=== PATIENT | female | born 1985 | race Caucasian/White ===

== ENCOUNTER 2016-07-24 02:56 | Emergency (ER) | payer OTHER, SELFPAY ==
--- NOTE | 2016-07-24 03:17 | ERPHSYRPT ---
- History of Present Illness Time Seen by Provider: 07/24/16 03:02 Source: patient Exam Limitations: no limitations Patient Subjective Stated Complaint: states that she recently has had an increased feeling of depression as a result of the of her mother - states that she was in a fight with her girlfriend this morning et took more of her xanax (2mg) and some additional Neurontin pills - states that she has a history of suicide attempts, "every year except for the last 2 of 15 years" - states that she was not trying to commit suicide tonight, but just that she wanted to feel numb - states that her ex- found her asleep in her home and he called the ambulance - pt states that she does not want to be hear and repeats that she is neither suicidal or homicidal tonight Triage Nursing Assessment: assisted to cart per EMS personnel - moves all extremities with equal strength. alert/oriented x 3 - sedated affect. skin pwd - with disheavaled appearance - no rash/injury appreciated. resps easy - non-labored Physician History: ABOUT 1 HOUR AGO PT'S DAUGHTER'S FATHER SAID PT WAS UNRESPONSIVE, CALLED POLICE AND EMS BROUGHT PT TO [facility] ER FOR EVALUATION. PT STATES SHE HAD AN ARGUEMENT WITH AN X-GIRLFRIEND YESTERDAY AND TONIGHT TOOK AN EXTRA 1 MG XANAX. PT DENIES SUICIDAL AND HOMICIDAL IDEATION TONIGHT. PT DENIES SHORTNESS OF AIR, FEVER, HEADACHE, ABDOMINAL PAIN, VOMITING; ADMITS TO CHEST PAIN ONLY WHEN ANXIOUS( ONGOING). PT STATES THAT EXCEPT FOR 2016 SHE HAS TRIED TO COMMIT SUICIDE BY OVERDOSE FOR THE PAST [address] IS A [facility] PT. Allergies/Adverse Reactions: eggs Allergy (Uncoded 07/24/16 03:01) Home Medications: Gabapentin 400 mg PO TID 12/19/14 [History] Venlafaxine HCl [Effexor] 75 mg PO DAILY 12/19/14 [History] Atorvastatin Calcium [Lipitor] 10 mg PO HS 03/12/15 [History] Cyclobenzaprine HCl 10 mg [Cyclobenzaprine 10 MG] 10 mg PO BID PRN [History] Modafinil [Provigil] 200 mg PO DAILY 03/12/15 [History] Olanzapine [Zyprexa] 15 mg PO DAILY 09/12/16 [History] Alprazolam 1 mg [Xanax 1 mg] 1 mg PO QIDPRN PRN 07/24/16 [History] Lansoprazole [Prevacid] 30 mg PO DAILY 07/24/16 [History] Hx Tetanus, Diphtheria Vaccination/Date Given: Yes Hx Influenza Vaccination/Date Given: No Hx Pneumococcal Vaccination/Date Given: No Immunizations Up to Date: Yes - Review of Systems Constitutional: No Fever Ears, Nose, & Throat: No Ear Pain, No Throat Pain Respiratory: No Dyspnea Cardiac: Chest Pain (ONLY WHEN ANXIOUS) Abdominal/Gastrointestinal: No Abdominal Pain, No Vomiting Psychological: Anxiety, Depression, Suicidal Ideations (HISTORY OF SUICIDAL IDEATIONS FOR THE PAST 15 YEARS.) Endocrine: No Excessive Sweating All Other Systems: Reviewed and Negative - Past Medical History Pertinent Past Medical History: Yes Neurological History: No Pertinent History ENT History: No Pertinent History Cardiac History: High Cholesterol Respiratory History: Asthma, Sleep Apnea Endocrine Medical History: No Pertinent History Musculoskeletal History: No Pertinent History GI Medical History: Gallbladder Disease History: No Pertinent History Psycho-Social History: Anxiety, Bipolar Female Reproductive Disorders: Other Other Medical History: dysphonia - Past Surgical History Past Surgical History: Yes Neuro Surgical History: No Pertinent History Cardiac: No Pertinent History Respiratory: No Pertinent History Gastrointestinal: Cholecystectomy Genitourinary: No Pertinent History Musculoskeletal: Orthopedic Surgery Female Surgical History: Section, Tubal Ligation Other Surgical History: back surgery - Social History Smoking Status: Current every day smoker How long have you smoked: 16 Exposure to second hand smoke: No Drug Use: none Patient Lives Alone: No - Female History Hx Now: No - Nursing Vital Signs Nursing Vital Signs: Initial Vital Signs Temperature 98.5 F Pulse Rate 88 Respiratory Rate 16 Blood Pressure [Right Arm] 114/76 Pain Intensity 0 - Physical Exam General Appearance: alert Eye Exam: PERRL/EOMI Ears, Nose, Throat Exam: dry mucous membranes Neck Exam: normal inspection Respiratory Exam: lungs clear Cardiovascular Exam: normal heart sounds Gastrointestinal/Abdomen Exam: soft, normal bowel sounds Back Exam: normal range of motion Extremity Exam: normal inspection, No pedal edema Neurologic Exam: alert, cooperative, depressed mood/affect Skin Exam: warm, dry SpO2: 92 Oxygen Delivery: Room Air - Course Nursing assessment & vital signs reviewed: Yes Ordered Tests: Active Orders 24 hr Category Date Time Status ACETAMINOPHEN Stat Lab 07/24/16 03:34 Completed CBC W DIFF Stat Lab 07/24/16 03:34 Completed CMP Stat Lab 07/24/16 03:34 Completed CULTURE,URINE Stat Lab 07/24/16 04:26 Ordered Ethyl Alcohol,Urine Stat Lab 07/24/16 03:34 Completed HCG QUALITATIVE,SERUM Stat Lab 07/24/16 03:34 Completed SALICYLATE Stat Lab 07/24/16 03:34 Completed UA W/ MICROSCOPIC Stat Lab 07/24/16 03:34 Completed Urine Triage Profile Stat Lab 07/24/16 03:34 Completed Medication Summary Discontinued Medications Generic Name Dose Route Start Last Admin Trade Name Freq PRN Reason Stop Dose Admin Ceftriaxone Sodium 1,000 mg 07/24/16 04:27 Rocephin 1000 Mg Inj IM 07/24/16 04:28 STAT ONE Promethazine HCl 25 mg 07/24/16 04:27 Phenergan 25 Mg Inj IM 07/24/16 04:28 STAT ONE Lab/Rad Data: Laboratory Result Diagrams 07/24/16 03:34 07/24/16 03:34 Laboratory Results 07/24/16 07/24/16 07/24/16 Range/Units 03:34 03:34 03:34 WBC (4.0-10.5) K/mm3 RBC (4.1-5.4) M/mm3 Hgb (12.0-16.0) gm/dl Hct (35-47) % MCV (78-100) fl MCH (26-32) pg MCHC (32-36) g/dl RDW (11.5-14.0) % Plt Count (150-450) K/mm3 MPV (6-9.5) fl Gran % (36.0-66.0) % Lymphocytes % (24.0-44.0) % Monocytes % (0.0-12.0) % Eosinophils % (0.00-5.0) % Basophils % (0.0-0.4) % Basophils # (0-0.4) Sodium 136 (136-145) mEq/L Potassium 3.7 (3.5-5.1) mEq/L Chloride 99 (98-107) mEq/L Carbon Dioxide 25.8 (21-32) mEq/L Anion Gap 15.0 (5-15) MEQ/L BUN 14 (9-20) mg/dL Creatinine 0.94 (0.55-1.30) mg/dl Estimated GFR > 60 ML/MIN Glucose 191 H (70-110) MG/DL Calcium 8.6 (8.5-10.1) mg/dL Total Bilirubin 0.3 (0.2-1.0) mg/dL AST 18 (15-37) U/L ALT 30 (12-78) U/L Alkaline Phosphatase 89 (46-116) U/L Serum Total Protein 8.4 H (6.4-8.2) gm/dL Albumin 3.5 (3.4-5.0) g/dL Serum , Qual NEGATIVE (Negative) Ur Collection Type Urine Color (YELLOW) Urine Appearance (CLEAR) Urine pH 5.5 (5-6) Ur Specific Beverly (1.005-1.025) Urine Protein (Negative) Urine Glucose (UA) (NEGATIVE) mg/dL Urine Ketones (NEGATIVE) Urine Nitrite (NEGATIVE) Urine Bilirubin (NEGATIVE) Urine Urobilinogen (0-1) mg/dL Urine WBC (Auto) (NEGATIVE) Urine RBC (Auto) (0-5) Rome/ul Urine Microscopic WBC (0-5) /HPF Ur Epithelial Cells (FEW) /HPF Urine Bacteria (NEGATIVE) /HPF Salicylates 4.3 (2.8-20.0) mg/dl Urine Opiates Level (NEGATIVE) Ur Methadone (NEGATIVE) Acetaminophen < 2.0 L (10-30) ug/ml Urine Barbiturates (NEGATIVE) Ur Phencyclidine (PCP) (NEGATIVE) Urine Amphetamine (NEGATIVE) U Benzodiazepine Level (NEGATIVE) Urine Cocaine (NEGATIVE) Urine Marijuana (THC) (NEGATIVE) Urine Ethyl Alcohol 1 (0.00-20) mg/dl Specimen Received 07/24/16 07/24/16 07/24/16 Range/Units 03:34 03:34 03:34 WBC 12.6 H (4.0-10.5) K/mm3 RBC 4.54 (4.1-5.4) M/mm3 Hgb 12.3 (12.0-16.0) gm/dl Hct 38.6 (35-47) % MCV 85.0 (78-100) fl MCH 27.1 (26-32) pg MCHC 31.9 L (32-36) g/dl RDW 16.3 H (11.5-14.0) % Plt Count 313 (150-450) K/mm3 MPV 11.0 H (6-9.5) fl Gran % 82.5 H (36.0-66.0) % Lymphocytes % 12.8 L (24.0-44.0) % Monocytes % 3.9 (0.0-12.0) % Eosinophils % 0.6 (0.00-5.0) % Basophils % 0.2 (0.0-0.4) % Basophils # 0.02 (0-0.4) Sodium (136-145) mEq/L Potassium (3.5-5.1) mEq/L Chloride (98-107) mEq/L Carbon Dioxide (21-32) mEq/L Anion Gap (5-15) MEQ/L BUN (9-20) mg/dL Creatinine (0.55-1.30) mg/dl Estimated GFR ML/MIN Glucose (70-110) MG/DL Calcium (8.5-10.1) mg/dL Total Bilirubin (0.2-1.0) mg/dL AST (15-37) U/L ALT (12-78) U/L Alkaline Phosphatase (46-116) U/L Serum Total Protein (6.4-8.2) gm/dL Albumin (3.4-5.0) g/dL Serum , Qual (Negative) Ur Collection Type CLEAN CATCH Urine Color DARK YELLOW (YELLOW) Urine Appearance CLOUDY (CLEAR) Urine pH 5.5 (5-6) Ur Specific Beverly >=1.030 (1.005-1.025) Urine Protein 30 (Negative) Urine Glucose (UA) NEGATIVE (NEGATIVE) mg/dL Urine Ketones TRACE (NEGATIVE) Urine Nitrite POSITIVE (NEGATIVE) Urine Bilirubin SMALL (NEGATIVE) Urine Urobilinogen 1 (0-1) mg/dL Urine WBC (Auto) TRACE (NEGATIVE) Urine RBC (Auto) NEGATIVE (0-5) Rome/ul Urine Microscopic WBC 5-10 (0-5) /HPF Ur Epithelial Cells FEW (FEW) /HPF Urine Bacteria PACKED (NEGATIVE) /HPF Salicylates (2.8-20.0) mg/dl Urine Opiates Level NEG. (NEGATIVE) Ur Methadone NEG. (NEGATIVE) Acetaminophen (10-30) ug/ml Urine Barbiturates NEG. (NEGATIVE) Ur Phencyclidine (PCP) NEG. (NEGATIVE) Urine Amphetamine NEG. (NEGATIVE) U Benzodiazepine Level POS. (NEGATIVE) Urine Cocaine NEG. (NEGATIVE) Urine Marijuana (THC) POS. (NEGATIVE) Urine Ethyl Alcohol (0.00-20) mg/dl Specimen Received [id number] - Departure Time of Disposition: 04:36 Departure Disposition: Home Clinical Impression: UTI, THC USE, 2MG XANAX INGESTION, ANXIETY, BIPOLAR Condition: Fair Critical Care Time: No Instructions: Urinary Tract Infection (UTI), Depression -- Adult Additional Instructions: FOLLOW UP WITH PRIVATE DOCTOR TOMORROW. Prescriptions: Smz/Tmp Ds Tablet [Bactrim Ds Tablet] 1 udtab PO BID #20 tablet
[2016-07-24 03:37] LABS: BASOPHIL % 0.2 % (0.0-0.4); Eosinophil % 0.6 % (0.00-5.0); Granulocytes % 82.5 % (36.0-66.0); Lymphocytes % 12.8 % (24.0-44.0); Mean Corpuscular Hemoglobin 27.1 pg (26-32); Monocytes % 3.9 % (0.0-12.0); Platelet Count 313 K/mm3 (150-450); Red Blood Count 4.54 M/mm3 (4.1-5.4); Red Cell Distribution Width 16.3 % (11.5-14.0); White Blood Count 12.6 K/mm3 (4.0-10.5)
[2016-07-24 03:51] LABS: ALBUMIN 3.5 g/dL (3.4-5.0); ALKALINE PHOSPHATASE 89 U/L (46-116); BILIRUBIN,TOTAL 0.3 mg/dL (0.2-1.0); BLOOD UREA NITROGEN 14 mg/dL (9-20); CHLORIDE 99 mEq/L (98-107); Carbon Dioxide 25.8 mEq/L (21-32); Glucose 191 MG/DL (70-110); Potassium 3.7 mEq/L (3.5-5.1); SGOT/AST 18 U/L (15-37); SGPT/ALT 30 U/L (12-78); SODIUM 136 mEq/L (136-145); Total Protein 8.4 gm/dL (6.4-8.2)
[2016-07-24 03:55] LABS: ACETAMINOPHEN < 2.0 ug/ml (10-30)
[2016-07-24 03:59] LABS: Collection Type CLEAN CATCH
[2016-07-24 04:00] LABS: Bacteria PACKED /HPF (NEGATIVE); COMPLETE URINE MICROSCOPIC? YES; Epithelial Cells FEW /HPF (FEW); Ph 5.5 (5-6)
[2016-07-24] MEDS ORDERED: Rocephin 1000 MG INJ IM ONE (04:27)
[2016-07-24] MEDS ORDERED: Phenergan 25 MG INJ IM ONE (04:27)
[2016-07-24] MEDS ORDERED: Rocephin 1000 MG INJ ONE (04:32)
[2016-07-24] MEDS ORDERED: Phenergan 25 MG INJ ONE (04:32)
[2016-07-24 04:36] VITALS: O2SAT 92
[2016-07-24 04:54] VITALS: BP 102/63; PULSE 92
== END 2016-07-24 04:54 | disposition home or self-care (01) ==
LOC: ED 02:56
DX: T42.4X5A Adverse effect of benzodiazepines, initial encounter (principal); F41.9 Anxiety disorder, unspecified; F31.9 Bipolar disorder, unspecified
CPT/HCPCS: 36415; 80053; 80307; 80320; 81000; 83986; 84703; 85025; 87077; 87086; 87186; 96372; 99283; 99284; G0481; J0696; J2550

== ENCOUNTER 2017-03-16 05:44 | Day surgery (SDC) | payer OTHER ==
[2017-03-16] MEDS ORDERED: Ketamine HCl 50 MG/ML IJ ONE (05:45)
[2017-03-16] MEDS ORDERED: DIPRIVAN 200 MG/20 ML IV ONE (05:45)
[2017-03-16] MEDS ORDERED: Lactated Ringers 1,000 ML IV SCH (06:30)
--- NOTE | 2017-03-16 09:17 | OP ---
SURGERY DATE/TIME: 03/16/2017 0840 PREOPERATIVE DIAGNOSIS: Persistent nausea and vomiting. POSTOPERATIVE DIAGNOSIS: Normal exam. PROCEDURE: EGD. SURGEON: Ian Woods M.D. ANESTHESIA: MAC by Guillermo Leong CRNA. ESTIMATED BLOOD LOSS: None. SPECIMENS: None. DESCRIPTION OF PROCEDURE: After informed written consent was obtained, the patient was taken to the endoscopy suite. She underwent monitored anesthesia and a bite block was inserted. The endoscope was inserted into the posterior oropharynx and under direct visualization the esophagus was traversed. The esophageal mucosa had a normal in appearance free of any lesions or defects. Gastric mucosa had a normal appearance free of lesions or defects upon entering the stomach cavity. The pylorus was traversed and the first and second portions of the duodenum likewise had a normal mucosal appearance. Upon withdrawal again the entire gastric mucosa had a normal rugated appearance. The gastroesophageal junction and esophageal mucosa likewise all had no mucosal abnormalities. The scope was removed and the patient was transferred to the recovery room in excellent condition.
[2017-03-16 10:46] VITALS: O2SAT 98
[2017-03-16 10:47] VITALS: BP 118/75; PULSE 79
== END 2017-03-16 10:50 | disposition home or self-care (01) ==
LOC: SDC 05:44
PROVIDERS: ATTEND Family Medicine
PROC: 0DJ08ZZ Inspection of Upper Intestinal Tract, Via Natural or Artificial Opening Endoscopic (ICD-10-PCS; principal; 2017-03-16)
DX: R11.2 Nausea with vomiting, unspecified (principal)
CPT/HCPCS: 00740; J2704

== ENCOUNTER 2020-05-23 10:06 | Emergency (ER) | payer OTHER ==
[2020-05-23 10:22] VITALS: BP 139/104; PULSE 89; O2SAT 98
[2020-05-23] MEDS ORDERED: TYLENOL EXTRA STRENGTH 500 MG PO STA (10:29)
[2020-05-23] MEDS ORDERED: TYLENOL EXTRA STRENGTH 500 MG ONE (10:32)
--- NOTE | 2020-05-23 10:37 | ERPHSYRPT ---
- History of Present Illness Time Seen by Provider: 05/23/20 10:18 Source: patient Exam Limitations: no limitations Patient Subjective Stated Complaint: Pt fell down her wooden stairs in her home last night and thinks she broke her left big toe, pt also states that she twi sted her back but isn't concerned with it Triage Nursing Assessment: Pt brought to the ER by her , left foot big toe is swollen and bruised, all the remaining toes has abrasions from the fall, pulse is normal, unable to check cap refill, vitals wnl, denies hitting head, c/o of low eros back pain but more medial Physician History: Patient is here for left first toe pain after a fall. Patient fell down the stairs yesterday. States that she took Lunesta. States that she was not sure how it hurt her. She then fell. She also has some low back pain. Patient has no red flag symptoms for back pain today: No Loss of control of the bowel or bladder. No weakness or numbness in a leg or arm. No foot drop, disturbed gait. No high fever, no IV drug use. No saddle anaesthesia (numbness of the anus, perineum or genitals). No h/o cancer Location: left foot Quality: sharp Radiation: none Severity: moderate Duration: yesterday Timing: after fall Modifying factors/associated signs and symptoms: home ibuprofen Timing/Duration: yesterday Severity: moderate Modifying Factors: Improves With: immobilization, medication Associated Symptoms: denies symptoms Allergies/Adverse Reactions: No Known Drug Allergies Allergy (Verified 05/23/20 10:22) Home Medications: Venlafaxine HCl [Effexor] 150 mg PO DAILY 12/19/14 [History] OLANZapine [Zyprexa] 10 mg PO DAILY 03/01/16 [History] Clonazepam 0.5 mg [Klonopin 0.5 MG] 0.5 mg PO UD PRN 03/15/17 [History] Propranolol HCl [Inderal LA] 60 mg PO DAILY 03/15/17 [History] Eszopiclone [Lunesta] 2 mg PO HS 05/23/20 [History] hydrOXYzine HCL [Hydroxyzine HCl] 50 mg PO TID PRN 05/23/20 [History] Hx Tetanus, Diphtheria Vaccination/Date Given: Yes Hx Influenza Vaccination/Date Given: No Hx Pneumococcal Vaccination/Date Given: No Travel Risk - International Travel Have you traveled outside of the country in past 3 weeks: No - Coronavirus Screening Are you exhibiting any of the following symptoms?: No Close contact with a COVID-19 positive Pt in past 14-21 Days: No - Review of Systems Constitutional: No Fever, No Chills Eyes: No Symptoms Ears, Nose, & Throat: No Symptoms Respiratory: No Cough, No Dyspnea Cardiac: No Chest Pain, No Edema, No Syncope Abdominal/Gastrointestinal: No Abdominal Pain, No Nausea, No Vomiting, No Diarrhea Genitourinary Symptoms: No Dysuria Musculoskeletal: Other (low back pain and left toe pain), No Back Pain, No Neck Pain Skin: No Rash Neurological: No Dizziness, No Focal Weakness, No Sensory Changes Psychological: No Symptoms Endocrine: No Symptoms All Other Systems: Reviewed and Negative - Past Medical History Pertinent Past Medical History: Yes Neurological History: No Pertinent History ENT History: No Pertinent History Cardiac History: High Cholesterol Respiratory History: Asthma, Sleep Apnea Endocrine Medical History: No Pertinent History Musculoskeletal History: No Pertinent History GI Medical History: Gallbladder Disease History: No Pertinent History Psycho-Social History: Anxiety, Bipolar Female Reproductive Disorders: Other Other Medical History: dysphonia - Past Surgical History Past Surgical History: Yes Neuro Surgical History: No Pertinent History Cardiac: No Pertinent History Respiratory: No Pertinent History Gastrointestinal: Cholecystectomy Genitourinary: No Pertinent History Musculoskeletal: Orthopedic Surgery Female Surgical History: Section, Tubal Ligation Other Surgical History: back surgeryplate in L foot, lipoma removed from back - Social History Smoking Status: Current every day smoker How long have you smoked: 16 Exposure to second hand smoke: Yes Drug Use: marijuana Patient Lives Alone: No - Female History Hx Now: No (tubal) - Nursing Vital Signs Nursing Vital Signs: Initial Vital Signs Temperature 98.4 F 05/23/20 10:12 Pulse Rate 89 05/23/20 10:12 Blood Pressure 139/104 05/23/20 10:12 O2 Sat by Pulse Oximetry 98 05/23/20 10:12 Pain Scale Pain Intensity 8 - Physical Exam General Appearance: no apparent distress, alert Eye Exam: PERRL/EOMI, eyes nml inspection Ears, Nose, Throat Exam: normal ENT inspection, TMs normal, pharynx normal, moist mucous membranes Neck Exam: normal inspection, non-tender, supple, full range of motion Respiratory Exam: normal breath sounds, lungs clear, No respiratory distress Cardiovascular Exam: regular rate/rhythm, normal heart sounds, normal peripheral pulses Gastrointestinal/Abdomen Exam: soft, normal bowel sounds, No tenderness, No mass Back Exam: normal inspection, normal range of motion, No CVA tenderness, No vertebral tenderness Extremity Exam: normal inspection, normal range of motion, pelvis stable Neurologic Exam: alert, oriented x 3, cooperative, normal mood/affect, nml cerebellar function, nml station & gait, sensation nml, No motor deficits Skin Exam: normal color, warm, dry, No rash Lymphatic Exam: No adenopathy SpO2 Interpretation: normal SpO2: 98 Comments: 05/23/20 10:35 left big toe injury, some swelling and tenderness. No obvious deformity, sensation intact, 2+ capillary refill, 2 point tactile discrimination intact. 5 out of 5 strength. Full range of motion with pain. Compartments are soft, nontender. Overlying skin shows no tenting, bruising, ecchymosis. Patient has some low back pain to palpation. No deformities or step-offs. No midline back pain. Patient has no saddle anesthesia. Otherwise full normal neurological exam. Mental status:The patient is alert, attentive, and oriented. Speech: clear and fluent with good repetition, comprehension, and naming. Motor: There is no pronator drift of out-stretched arms. Muscle bulk and tone are normal. Strength is full bilaterally. Reflexes: Reflexes are 2+ and symmetric at the biceps, triceps, knees, and ankles. Plantar responses are flexor. Sensory: Light touch sense are intact in bilateral upper and lower extremities. There is no sign of neglect. Coordination: Rapid alternating movements are intact. There is no dysmetria on [id number] and [id number]. There are no abnormal or extraneous movements. Romberg is absent. Gait/Stance: Posture is normal. Gait is steady with normal steps, base, arm swing, and turning. Heel and toe walking are normal. Tandem gait is normal. - Course Nursing assessment & vital signs reviewed: Yes Ordered Tests: Active Orders 24 hr Category Date Time Status LUMBAR LIMITED (2 OR 3 VIEWS) Stat Exams 05/23/20 10:48 Completed TOE(S) (MIN 2 VIEWS) Stat Exams 05/23/20 10:48 Completed Medication Summary Discontinued Medications Generic Name Dose Route Start Last Admin Trade Name Frank PRN Reason Stop Dose Admin Acetaminophen 1,000 mg 05/23/20 10:29 05/23/20 10:33 Tylenol Extra Strength 500 Mg PO 05/23/20 10:30 1,000 mg STAT STA Administration Acetaminophen Confirm 05/23/20 10:32 Tylenol Extra Strength 500 Mg Administered 05/23/20 10:33 Dose 1,000 mg .ROUTE .STK-MED ONE - Progress Progress: improved Progress Note: 05/23/20 10:37 We will obtain x-rays of the left toe and foot. Will obtain x-rays of the low b ack, L-spine. 05/23/20 11:0) XR shows- nondisplaced comminuted fracture base of distal great toe with intra-articular my read. Patient will be placed in post-op shoe. She will be non-weightbearing and follow up with Dr. Dann DPM in the next 24-48 hours. Plan of care was discussed with patient and all questions answered. The patient is agreeable to be discharged home and both verbal and printed discharge instructions were provided.The patient agreed to seek outpatient follow up as discussed. The patient was given strict instructions to return to the emergency department for worsening symptoms or any other emergent concerns. The patient verbalized understanding. Counseled pt/family regarding: diagnosis, need for follow-up, rad results - Departure Departure Disposition: Home Clinical Impression: Fracture of toe of left foot Condition: Stable Critical Care Time: No Referrals: REYNA MOSELEY [Primary Care Provider] - Instructions: Toe Injury (DC) Additional Instructions: Call Dr. Quigley of poditary and see in the next 24-48 hours. [phone] Use crutches, do not bear weight, keep shoe on until follow up.
--- NOTE | 2020-05-23 10:58 | XRAY ---
Indication: Low back pain following fall. Comparison: July 18, 2012. 3 view lumbar spine again demonstrates normal bones, articulation, and soft tissues with incidental cholecystectomy clips.
--- NOTE | 2020-05-23 10:58 | XRAY ---
Indication: Great toe pain following fall. Comparison: December 30, 2016. 3 nonweightbearing views left forefoot demonstrates new nondisplaced comminuted fracture base of distal great toe with intra-articular extension and soft tissue swelling. Stable old 5th metatarsal fracture with intact hardware.
== END 2020-05-23 11:16 | disposition home or self-care (01) ==
LOC: ED 10:06
DX: S92.402A Displaced unspecified fracture of left great toe, initial encounter for closed fracture (principal); W10.8XXA Fall (on) (from) other stairs and steps, initial encounter; Y93.01 Activity, walking, marching and hiking; Y92.009 Unspecified place in unspecified non-institutional (private) residence as the place of occurrence of the external cause; M79.89 Other specified soft tissue disorders
CPT/HCPCS: 72100; 73660; 99284; A9270-GY

== ENCOUNTER 2020-06-13 11:18 | Emergency (ER) | payer OTHER ==
[2020-06-13] MEDS ORDERED: Norflex 60 MG/2 ML IM ONE (11:49)
--- NOTE | 2020-06-13 11:50 | ERPHSYRPT ---
- History of Present Illness Time Seen by Provider: 06/13/20 11:28 Source: patient Exam Limitations: no limitations Patient Subjective Stated Complaint: pt here right shoulder pain that radiates down arm and down to ribs, no injury, she is able to get undressed Triage Nursing Assessment: pt alert, resp easy, skin w/p/d, face mask in place, no bruising or abrasions noted Physician History: 35 years old female presented in the ER with chief complaint of right shoulder area pain waking her up from sleep yesterday morning, continuous, postural relief with taking ibuprofen and holding it closer to chest wall. No difficulty movements of shoulder are weakness in the right upper extremity. Pain comes on usually sitting in a certain position but denies any neck or midline upper back pain. The whole scapular area and anterior pectoralis area is involved with soreness. No difficulty breathing or chest pain otherwise. No recent cough fever or chills reported. Occurred: yesterday Method of Injury: unknown Quality: constant, burning, sharpness Severity of Pain-Max: moderate Severity of Pain-Current: moderate Extremities Pain Location: shoulder: right, arm: right Modifying Factors: Improves With: immobilization, pain medication, rest. Worsens With: movement Associated Symptoms: back pain, chest discomfort, No short of breath Allergies/Adverse Reactions: bupropion [From Wellbutrin] Allergy (Verified 06/13/20 11:29) gabapentin Allergy (Verified 06/13/20 11:29) tramadol Allergy (Verified 06/13/20 11:29) Home Medications: Venlafaxine HCl [Effexor] 150 mg PO DAILY 12/19/14 [History] OLANZapine [Zyprexa] 10 mg PO DAILY 03/01/16 [History] Clonazepam 0.5 mg [Klonopin 0.5 MG] 0.5 mg PO UD PRN 03/15/17 [History] Propranolol HCl [Inderal LA] 60 mg PO DAILY 03/15/17 [History] Eszopiclone [Lunesta] 2 mg PO HS 05/23/20 [History] hydrOXYzine HCL [Hydroxyzine HCl] 50 mg PO TID PRN 05/23/20 [History] Clonidine HCl 0.1 mg [Catapres 0.1 MG] 0.2 mg DAILY 06/13/20 [History] Omeprazole 1 ea DAILY 06/13/20 [History] Hx Tetanus, Diphtheria Vaccination/Date Given: Yes Hx Influenza Vaccination/Date Given: Yes Hx Pneumococcal Vaccination/Date Given: No Immunizations Up to Date: Yes Travel Risk - International Travel Have you traveled outside of the country in past 3 weeks: No - Coronavirus Screening Are you exhibiting any of the following symptoms?: No Close contact with a COVID-19 positive Pt in past 14-21 Days: No - Review of Systems Eyes: No Symptoms Ears, Nose, & Throat: No Symptoms Respiratory: No Symptoms Cardiac: No Symptoms Abdominal/Gastrointestinal: No Symptoms Genitourinary Symptoms: No Symptoms Musculoskeletal: Joint Pain Skin: No Symptoms Neurological: No Symptoms Psychological: No Symptoms Endocrine: No Symptoms Hematologic/Lymphatic: No Symptoms Immunological/Allergic: No Symptoms - Past Medical History Pertinent Past Medical History: Yes Neurological History: No Pertinent History ENT History: No Pertinent History Cardiac History: High Cholesterol Respiratory History: Asthma, Sleep Apnea Endocrine Medical History: Diabetes Type II Musculoskeletal History: No Pertinent History GI Medical History: Gallbladder Disease History: No Pertinent History Psycho-Social History: Anxiety, Bipolar Female Reproductive Disorders: Other Other Medical History: dysphonia - Past Surgical History Past Surgical History: Yes Neuro Surgical History: No Pertinent History Cardiac: No Pertinent History Respiratory: No Pertinent History Gastrointestinal: Cholecystectomy Genitourinary: No Pertinent History Musculoskeletal: Orthopedic Surgery Female Surgical History: Section, Tubal Ligation Other Surgical History: back surgeryplate in L foot, lipoma removed from back - Social History Smoking Status: Current every day smoker How long have you smoked: 16 Exposure to second hand smoke: Yes Drug Use: marijuana Patient Lives Alone: No - Female History Hx Last Menstrual Period: 2 weeks ago Hx Now: No - Nursing Vital Signs Nursing Vital Signs: Initial Vital Signs Pulse Rate 78 06/13/20 12:01 Respiratory Rate 18 06/13/20 12:01 O2 Sat by Pulse Oximetry 98 06/13/20 12:01 Pain Scale Pain Intensity 5 - Physical Exam General Appearance: no apparent distress, alert Eyes, Ears, Nose, Throat Exam: normal ENT inspection, TMs normal, pharynx normal Neck Exam: normal inspection, non-tender, supple, full range of motion, tenderness lateral (Mild tenderness right trapezius area) Cardiovascular/Respiratory Exam: normal breath sounds, regular rate/rhythm, No chest non-tender (Tenderness in upper pectoralis major area right. No crepitus.), No rib tenderness Abdominal Exam: non-tender, soft, no organomegaly Back Exam: normal inspection, normal range of motion Shoulder Exam: normal inspection, non-tender, no evidence of injury, normal ROM, soft tissue tenderness (Upper scapular area. But no bony tenderness at all) Elbow/Forearm Exam: normal inspection, non-tender Wrist Exam: normal inspection, non-tender Hand Exam: normal inspection, non-tender Neuro/Tendon Exam: normal sensation, normal motor functions Mental Status Exam: alert, oriented x 3, cooperative Skin Exam: normal color, warm SpO2 Interpretation: normal O2 Delivery: Room Air Ordered Tests: Medication Summary Discontinued Medications Generic Name Dose Route Start Last Admin Trade Name Freq PRN Reason Stop Dose Admin Cyclobenzaprine HCl 10 mg 06/13/20 12:29 Cyclobenzaprine 10 Mg PO 07/13/20 12:28 TID PRN PRN MUSCLE SPASMS Ketorolac Tromethamine 30 mg 06/13/20 11:49 06/13/20 11:55 Toradol 30 Mg Injection IM 06/13/20 11:50 30 mg STAT ONE Administration Ketorolac Tromethamine Confirm 06/13/20 11:52 Toradol 30 Mg Injection Administered 06/13/20 11:53 Dose 30 mg .ROUTE .STK-MED ONE Orphenadrine Citrate 60 mg 06/13/20 11:49 06/13/20 11:56 Norflex 60 Mg/2 Ml IM 06/13/20 11:50 60 mg STAT ONE Administration Orphenadrine Citrate Confirm 06/13/20 11:52 Norflex 60 Mg/2 Ml Administered 06/13/20 11:53 Dose 60 mg .ROUTE .STK-MED ONE - Progress Progress Note: 06/13/20 15:58 I believe patient has strain/spasm, given Toradol and Norflex, on reevaluation feeling better. Has intact range of motion. No bony tenderness in the chest or shoulder. Do not think she needs any imaging. We will continue with NSAIDs and muscle relaxants to go home and outpatient follow-up recommended. Counseled pt/family regarding: diagnosis, need for follow-up - Departure Departure Disposition: Home Clinical Impression: Muscle strain of shoulder region Qualifiers: Encounter type: initial encounter Laterality: right Qualified Code(s): S46.911A - Strain of unspecified muscle, fascia and tendon at shoulder and upper arm level, right arm, initial encounter Condition: Stable Critical Care Time: No Referrals: REYNA MOSELEY [Primary Care Provider] - Follow Up with PCP/3 days Instructions: Muscle Strain, Cervical Muscle Strain (DC) Additional Instructions: Take Tylenol/ibuprofen as needed for pain. Follow-up with your primary care physician for reevaluation. Avoid exertional activities. Return to ER for any worsening Prescriptions: Ibuprofen 600 mg PO Q6HPRN PRN 10 Days #20 tablet PRN Reason: Pain Cyclobenzaprine HCl 10 mg [Flexeril 10 MG] 10 mg PO TID #12 tablet
[2020-06-13] MEDS ORDERED: Norflex 60 MG/2 ML ONE (11:52)
[2020-06-13] MEDS ORDERED: TORAdol 30 mg Injection ONE (11:52)
[2020-06-13] MEDS: TORAdol 30 mg Injection IM ONE ×2 (11:54→11:55)
[2020-06-13 12:02] VITALS: PULSE 78; O2SAT 98
[2020-06-13] MEDS ORDERED: Cyclobenzaprine 10 MG PO PRN (12:29)
== END 2020-06-13 13:00 | disposition home or self-care (01) ==
LOC: ED 11:18
DX: S46.911A Strain of unspecified muscle, fascia and tendon at shoulder and upper arm level, right arm, initial encounter (principal); M25.511 Pain in right shoulder
CPT/HCPCS: 96372; 99284; J1885; J2360

== ENCOUNTER 2020-06-16 08:53 | Emergency (ER) | payer OTHER ==
[2020-06-16 09:10] VITALS: O2SAT 99
[2020-06-16] MEDS ORDERED: TORAdol 30 mg Injection IM ONE (09:26)
[2020-06-16] MEDS ORDERED: TORAdol 30 mg Injection ONE (09:28)
--- NOTE | 2020-06-16 09:29 | ERPHSYRPT ---
- History of Present Illness Time Seen by Provider: 06/16/20 09:10 Source: patient Exam Limitations: no limitations Patient Subjective Stated Complaint: Pt was here 3 days ago with the same complaints, pain to the upper right back that radiates to her shoulder and down her right arm and upper chest Triage Nursing Assessment: Pt brought to the ER by her boyfriend, hypertensive, reports no relief since coming to the ER 3 days ago, states that the medicines just made her sleepy but did nothing for the pain, thinks that she may have injured it wrestling with her son and daughter on the , denies tenderness with palpatation or ROM, pulses normal, rates pain 6/10, doesn't appear to be in any distress Physician History: Patient is a 35-year-old female presents to our ED with complaints of right shoulder arm and upper chest pain. Symptoms started on June 12, 4 days ago after play wrestling with her son and daughter. Pain described as an ache that is constant. Pain is worse with resisted internal and external rotation of her right shoulder. Resisted shoulder extension flexion and abduction also reprodu ce symptoms. No palpable tenderness at the superficial [place] muscle groups. Pain described as an ache that is localized. No radiation. No associated nausea or vomiting. No diaphoresis. No dizziness. Patient has been taking ibuprofen with little to no relief. Are mild to moderate in intensity. Patient voices no other complaints or concerns at this time. Timing/Duration: day(s) (4 days ago) Severity: moderate Modifying Factors: Improves With: other (Isometric muscle contractions of the rotator cuff musculature.) Associated Symptoms: denies symptoms Allergies/Adverse Reactions: bupropion [From Wellbutrin] Allergy (Verified 06/16/20 09:10) gabapentin Allergy (Verified 06/16/20 09:10) tramadol Allergy (Verified 06/16/20 09:10) Home Medications: Venlafaxine HCl [Effexor] 150 mg PO DAILY 12/19/14 [History] OLANZapine [Zyprexa] 10 mg PO DAILY 03/01/16 [History] Clonazepam 0.5 mg [Klonopin 0.5 MG] 0.5 mg PO UD PRN 03/15/17 [History] Propranolol HCl [Inderal LA] 60 mg PO DAILY 03/15/17 [History] Eszopiclone [Lunesta] 2 mg PO HS 05/23/20 [History] hydrOXYzine HCL [Hydroxyzine HCl] 50 mg PO TID PRN 05/23/20 [History] Clonidine HCl 0.1 mg [Catapres 0.1 MG] 0.2 mg DAILY 06/13/20 [History] Omeprazole 1 ea DAILY 06/13/20 [History] Hx Tetanus, Diphtheria Vaccination/Date Given: Yes Hx Influenza Vaccination/Date Given: Yes Hx Pneumococcal Vaccination/Date Given: No Travel Risk - International Travel Have you traveled outside of the country in past 3 weeks: No - Coronavirus Screening Are you exhibiting any of the following symptoms?: No Close contact with a COVID-19 positive Pt in past 14-21 Days: No - Review of Systems Constitutional: No Symptoms, No Fever, No Chills Eyes: No Symptoms Ears, Nose, & Throat: No Symptoms Respiratory: No Symptoms, No Cough, No Dyspnea Cardiac: No Symptoms, No Chest Pain, No Edema, No Syncope Abdominal/Gastrointestinal: No Symptoms, No Abdominal Pain, No Nausea, No Vomiting, No Diarrhea Genitourinary Symptoms: No Symptoms, No Dysuria Musculoskeletal: No Symptoms, No Back Pain, No Neck Pain Skin: No Symptoms, No Rash Neurological: No Symptoms, No Dizziness, No Focal Weakness, No Sensory Changes Psychological: No Symptoms Endocrine: No Symptoms Hematologic/Lymphatic: No Symptoms Immunological/Allergic: No Symptoms All Other Systems: Reviewed and Negative - Past Medical History Pertinent Past Medical History: Yes Neurological History: No Pertinent History ENT History: No Pertinent History Cardiac History: High Cholesterol Respiratory History: Asthma, Sleep Apnea Endocrine Medical History: Diabetes Type II Musculoskeletal History: No Pertinent History GI Medical History: Gallbladder Disease History: No Pertinent History Psycho-Social History: Anxiety, Bipolar Female Reproductive Disorders: Other Other Medical History: dysphonia - Past Surgical History Past Surgical History: Yes Neuro Surgical History: No Pertinent History Cardiac: No Pertinent History Respiratory: No Pertinent History Gastrointestinal: Cholecystectomy Genitourinary: No Pertinent History Musculoskeletal: Orthopedic Surgery Female Surgical History: Section, Tubal Ligation Other Surgical History: back surgeryplate in L foot, lipoma removed from back - Social History Smoking Status: Current every day smoker How long have you smoked: 16 Exposure to second hand smoke: Yes Drug Use: marijuana Patient Lives Alone: No - Female History Hx Now: No (tubal) - Nursing Vital Signs Nursing Vital Signs: Initial Vital Signs Temperature 97.6 F 06/16/20 09:02 Pulse Rate 97 H 06/16/20 09:02 Blood Pressure 155/94 06/16/20 09:02 O2 Sat by Pulse Oximetry 99 06/16/20 09:02 Pain Scale Pain Intensity 6 - Physical Exam General Appearance: no apparent distress, alert Eye Exam: PERRL/EOMI, eyes nml inspection Ears, Nose, Throat Exam: normal ENT inspection, TMs normal, pharynx normal, moist mucous membranes Neck Exam: normal inspection, non-tender, supple, full range of motion Respiratory Exam: normal breath sounds, lungs clear, No respiratory distress Cardiovascular Exam: regular rate/rhythm, normal heart sounds, normal peripheral pulses Gastrointestinal/Abdomen Exam: soft, normal bowel sounds, No tenderness, No mass Back Exam: normal inspection, normal range of motion, No CVA tenderness, No vertebral tenderness Extremity Exam: normal inspection, normal range of motion, pelvis stable, other (Right upper extremity is neurovascular intact distally. Compartments are soft. Cap refill less than 2 seconds. Internal/external rotation of right shoulder/isometric contractions of internal/external rotators reproduce symptoms. No superficial tenderness to any of the shoulder musculature.) Neurologic Exam: alert, oriented x 3, cooperative, normal mood/affect, nml cerebellar function, sensation nml, No motor deficits Skin Exam: normal color, warm, dry, No rash Lymphatic Exam: No adenopathy SpO2 Interpretation: normal SpO2: 99 O2 Delivery: Room Air - Course Nursing assessment & vital signs reviewed: Yes EKG Interpreted by Me: RATE (78), Sinus Rhythm, NORMAL AXIS, NORMAL INTERVALS (T wave inversion anterior leads.) - Radiology Exams Shoulder X-ray Interpretation: Teleradiologist Report (No fracture or dislocation. No soft tissue or bony abnormalities.) Ordered Tests: Active Orders 24 hr Category Date Time Status Sports Commentator STAT Care 06/16/20 09:50 Active EKG-ER Only STAT Care 06/16/20 09:30 Active Pulse Oximetry (ED) STAT Care 06/16/20 09:49 Active SHOULDER Stat Exams 06/16/20 09:25 Completed CBC W DIFF Stat Lab 06/16/20 10:00 Completed CMP Stat Lab 06/16/20 10:00 Completed NT PRO BNP Stat Lab 06/16/20 10:00 Completed TROPONIN Q3H Lab 06/16/20 10:00 Completed TROPONIN Q3H Lab 06/16/20 13:00 Ordered TROPONIN Q3H Lab 06/16/20 16:00 Ordered TROPONIN Q3H Lab 06/16/20 19:00 Ordered TROPONIN Q3H Lab 06/16/20 22:00 Ordered Medication Summary Discontinued Medications Generic Name Dose Route Start Last Admin Trade Name Freq PRN Reason Stop Dose Admin Ketorolac Tromethamine 30 mg 06/16/20 09:26 06/16/20 09:29 Toradol 30 Mg Injection IM 06/16/20 09:27 30 mg STAT ONE Administration Ketorolac Tromethamine Confirm 06/16/20 09:28 Toradol 30 Mg Injection Administered 06/16/20 09:29 Dose 30 mg .ROUTE .STK-MED ONE Lab/Rad Data: Laboratory Result Diagrams 06/16/20 10:00 06/16/20 10:00 Laboratory Results 06/16/20 06/16/20 06/16/20 Range/Units 10:00 10:00 10:00 WBC 10.0 (4.0-10.5) K/mm3 RBC 4.66 (4.1-5.4) M/mm3 Hgb 12.4 (12.0-16.0) gm/dl Hct 39.8 (35-47) % MCV 85.4 (78-100) fl MCH 26.6 (26-32) pg MCHC 31.2 L (32-36) g/dl RDW 15.7 H (11.5-14.0) % Plt Count 282 (150-450) K/mm3 MPV 10.6 (7.5-11.0) fl Gran % 73.5 H (36.0-66.0) % Eos # (Auto) 0.12 (0-0.5) Absolute Lymphs (auto) 1.93 (1.0-4.6) Absolute Monos (auto) 0.53 (0.0-1.3) Lymphocytes % 19.2 L (24.0-44.0) % Monocytes % 5.3 (0.0-12.0) % Eosinophils % 1.2 (0.00-5.0) % Basophils % 0.8 (0.0-0.4) % Absolute Granulocytes 7.38 H (1.4-6.9) Basophils # 0.08 (0-0.4) Sodium 134 L (137-145) mmol/L Potassium 4.0 (3.5-5.1) mmol/L Chloride 102 (98-107) mmol/L Carbon Dioxide 24 (22-30) mmol/L Anion Gap 11.4 (5-15) MEQ/L BUN 8 (7-17) mg/dL Creatinine 0.50 L (0.52-1.04) mg/dL Estimated GFR > 60.0 ML/MIN Glucose 157 H (74-106) mg/dL Calcium 9.0 (8.4-10.2) mg/dL Total Bilirubin 0.20 (0.2-1.3) mg/dL AST 31 (14-36) U/L ALT 20 (0-35) U/L Alkaline Phosphatase 55 (38-126) U/L Troponin I < 0.012 (0.000-0.034) ng/mL NT-Pro-B Natriuret Pep 14.7 (0-450) pg/mL Serum Total Protein 7.6 (6.3-8.2) g/dL Albumin 4.2 (3.5-5.0) g/dL - Progress Progress: improved Progress Note: 06/16/20 10:43 Patient reassessed. She is well. Patient has T wave inversions on her EKG. Troponin negative. X-ray of right shoulder negative. Patient appears to have a rotator cuff injury. Patient placed in a shoulder sling. Prescription for Toradol for the patient's pharmacy. Patient agrees to follow-up with her primary care doctor within 48 hours for reevaluation. Counseled pt/family regarding: lab results, diagnosis, need for follow-up, rad results - Departure Departure Disposition: Home Clinical Impression: Right shoulder strain Condition: Stable Critical Care Time: No Referrals: REYNA MOSELEY [Primary Care Provider] -
--- NOTE | 2020-06-16 09:50 | XRAY ---
Indication: Pain following injury June 12, 2020. Comparison: None 3 view right shoulder obtained. No bony, articular, or soft tissue abnormalities.
[2020-06-16 10:10] LABS: Absolute Neutrophil Ct (ANC) 7.38 (1.4-6.9); BASOPHIL % 0.8 % (0.0-0.4); Basophil (Absolute #) 0.08 (0-0.4); Eosinophil % 1.2 % (0.00-5.0); Eosinophil (Absolute #) 0.12 (0-0.5); Hematocrit 39.8 % (35-47); Hemoglobin 12.4 gm/dl (12.0-16.0); Lymphocyte (Absolute #) 1.93 (1.0-4.6); Lymphocytes % 19.2 % (24.0-44.0); Mean Cell Volume 85.4 fl (78-100); Mean Corpuscular Hemoglobin 26.6 pg (26-32); Mean Corpuscular Hgb Concent. 31.2 g/dl (32-36); Mean Platelet Volume 10.6 fl (7.5-11.0); Monocyte (Absolute #) 0.53 (0.0-1.3); Monocytes % 5.3 % (0.0-12.0); Neutrophil % 73.5 % (36.0-66.0); Platelet Count 282 K/mm3 (150-450); Red Blood Count 4.66 M/mm3 (4.1-5.4); Red Cell Distribution Width 15.7 % (11.5-14.0)
[2020-06-16 10:29] LABS: SGPT/ALT 20 U/L (0-35)
[2020-06-16 10:32] LABS: ALBUMIN 4.2 g/dL (3.5-5.0); ALKALINE PHOSPHATASE 55 U/L (38-126); ANION GAP 11.4 MEQ/L (5-15); BLOOD UREA NITROGEN 8 mg/dL (7-17); CHLORIDE 102 mmol/L (98-107); Carbon Dioxide 24 mmol/L (22-30); EST GLOMERULAR FILTRATION RATE > 60.0 ML/MIN; Glucose 157 mg/dL (74-106); NT PRO BNP 14.7 pg/mL (0-450); SGOT/AST 31 U/L (14-36); SODIUM 134 mmol/L (137-145); Total Protein 7.6 g/dL (6.3-8.2)
[2020-06-16 10:48] VITALS: BP 147/100; PULSE 89
== END 2020-06-16 10:52 | disposition home or self-care (01) ==
LOC: ED 08:53
DX: T14.8XXA Other injury of unspecified body region, initial encounter (principal); X50.9XXA Other and unspecified overexertion or strenuous movements or postures, initial encounter; X50.0XXA Overexertion from strenuous movement or load, initial encounter; Y93.72 Activity, wrestling; Y92.9 Unspecified place or not applicable
CPT/HCPCS: 36415; 73030; 80053; 83880; 84484; 85025; 96372; 99284; J1885